=== PATIENT | female | born 1930 | race Caucasian/White ===

== ENCOUNTER 2016-12-24 14:15 | Inpatient (IN) | payer MEDICARE, OTHER, MEDICAID ==
[2016-12-24 14:25] VITALS: BP 119/60
--- NOTE | 2016-12-24 14:40 | ED Physician Chart ---
Chief Complaint/HPI - Patient Information Date Seen:: 12/24/16 Time Seen:: 14:35 Chief Complaint:: agitation History of Present Illness:: pt sent for negrita ortiz for difficult behavior...increased agitation. pt cant give much hx..barely is verbal. yells some but not communicative. she is noted very restless and agitated by staff in ed on arrival Allergies:: Allergies Allergy/AdvReac Type Severity Reaction Status Date / Time peanut Allergy Verified 12/24/16 14:25 diazepam [From Valium] AdvReac Verified 12/24/16 14:25 Vitals:: Vital Signs - 8 hr 12/24/16 12/24/16 14:25 14:26 Temp 98.4 F HR 87 RR 18 BP 119/60 119/60 O2 Sat % 97 Historian:: Patient, Medical Records Review:: Transfer documents Reviewed Review of Systems - Review of Systems General/Constitutional: No fever, No chills, No weight loss, No weakness, No diaphoresis, No edema, No loss of appetite Skin: No skin lesions, No rash, No bruising Head: No headache, No light-headedness Eyes: No loss of vision, No pain, No diplopia ENT: No earache, No nasal drainage, No sore throat, No tinnitus Neck: No neck pain, No swelling, No thyromegaly, No stiffness, No mass noted Cardio Vascular: No chest pain, No palpitations, No PND, No orthopnea, No edema Pulmonary: No SOB, No cough, No sputum, No wheezing GI: No nausea, No vomiting, No diarrhea, No pain, No melena, No hematochezia, No constipation, No hematemesis G/U: No dysuria, No frequency, No hematuria Musculoskeletal: No bone or joint pain, No back pain, No muscle pain Endocrine: No polyuria, No polydipsia Psychiatric: Prior psych history, No depression, No anxiety, No suicidal ideation Hematopoietic: No bruising, No lymphadenopathy Allergic/Immuno: No urticaria, No angioedema Neurological: No syncope, No focal symptoms, No weakness, No paresthesia, No headache, No seizure, No dizziness, Confusion, No vertigo, Other (poor comunication ability) Past Medical History - Past Medical History Past Medical History: HTN, Dyslipidemia, PUD/GERD, Arthritis, Other (insomnea, gi bleed, divertic, osteoporosis, ) Social History: Care Facility Psychiatricy History: Depression, Bipolar Medication: Reviewed Family Medical History - Family Member Nephew History Unknown: Yes Physical Exam - Physical Examination General/Constitutional: Awake, Well-developed, well-nourished, Alert, No distress, Non-toxic appearing Head: Atraumatic Eyes: Lids, conjuctiva normal, PERRL, EOMI Skin: Nl inspection, No rash, No skin lesions, No ecchymosis, Well hydrated, No lymphadenopathy ENMT: External ears, nose nl, Nasal exam nl, Lips, teeth, gums nl Neck: Nontender, Full ROM w/o pain, No JVD, No nuchal rigidity, No bruit, No mass, No stridor Respiratory: Nl effort/Exclusion, Clear to Auscultation, No Wheeze/Rhonchi/Rales Cardio Vascular: RRR, No murmur, gallop, rubs, NL S1 S2 GI: No tenderness/rebounding/guarding, No organomegaly, No hernia, Normal BS's, Nondistended, No mass/bruits, No McBurney tenderness : No CVA tenderness Extremities: No tenderness or effusion, Full ROM, normal strength in all extremities, No edema, Normal digits & nails Neuro/Psych: Alert/oriented, DTR's symmetric, Normal sensory exam, Normal motor strength, Normal gait, No focal deficits Other Neuro/Psych comments:: pt not conversive...though she does yell at times. seh is very restless w whole body choreo-athetoid mvts. Misc: normal gait, Normal back, No paraspinal tenderness Labs/Radiology/EKG Results - Lab Results Results: Laboratory Tests 12/24/16 12/24/16 12/24/16 14:30 14:50 14:50 WBC 6.0 RBC 4.35 Hgb 12.7 Hct 37.1 MCV 85.3 MCH 29.1 MCHC Differential 34.1 RDW 12.9 Plt Count 194 MPV 8.2 Neutrophils % 58.3 Lymphocytes % 31.3 Monocytes % 7.3 Eosinophils % 3.1 Basophils % 0.0 Sodium 139 Potassium 3.6 Chloride 108 H Carbon Dioxide 22.9 Anion Gap 11.7 BUN 16 Creatinine 0.8 Est GFR ( Amer) TNP Est GFR (Non-Af Amer) TNP BUN/Creatinine Ratio 20.0 Glucose 107 H Whole Bld Lactic Acid 1.80 Calcium 9.4 Total Bilirubin 0.4 AST 15 ALT 12 Alkaline Phosphatase 89 Total Protein 7.2 Albumin 4.0 Globulin 3.2 Albumin/Globulin Ratio 1.3 Triglycerides 170 H Cholesterol 165 LDL Cholesterol Direct 79 HDL Cholesterol 64 - EKG Interpretations EKG Time:: 14:40 Rhythm: nsr [place]: 17 Rate: 87 Comments:: normal study x LBBB ED Septic Shock - . Is Septic Shock (SBP<90, OR Lactate>4 mmol\L) present?: No - <6hrs of presentation: Vital Signs: Vital Signs - 8 hr 12/24/16 12/24/16 14:25 14:26 Temp 98.4 F HR 87 RR 18 BP 119/60 119/60 O2 Sat % 97 Reassessment (Disposition) - Reassessment Reassessment Condition:: Improved - Diagnosis Diagnosis:: 1 agitation 2 medically clear for aster-psych admission - Patient Disposition Condition at Disposition:: Improved ED Discharge Plan - Patient Disposition Instructions: Psychosis
[2016-12-24 15:03] LABS: % EOSINOPHILS 3.1 % (0.0-5.0); % LYMPHOCYTES 31.3 % (20.0-50.0); % MONOCYTES 7.3 % (2.0-10.0); % NEUTROPHILS 58.3 % (40.0-80.0); HEMATOCRIT 37.1 % (35.0-45.0); HEMOGLOBIN 12.7 gm/dL (11.7-16.1); MEAN CELL VOLUME 85.3 fl (81-100); MEAN CORPUSCULAR HEMOGLOBIN 29.1 pg (27.0-31.0); MEAN CORPUSCULAR HGB CONC 34.1 pg (28.0-36.0); MEAN PLATELET VOLUME 8.2 fl; NEUTROPHILE ABSOLUTE 3.5 Th/cmm (1.8-8.0); PLATELET COUNT 194 Th/cmm (150-400); RED BLOOD COUNT 4.35 Mil/cmm (3.80-5.20); RED CELL DISTRIBUTION WIDTH 12.9 % (11.5-20.0)
[2016-12-24 15:21] LABS: ALB/GLOB RATIO 1.3 (1.0-1.8); ALKALINE PHOSPHATASE 89 U/L (34-104); ANION GAP 11.7 (7.0-16.0); BILIRUBIN,TOTAL 0.4 mg/dL (0.3-1.0); BUN - UREA NITROGEN 16 mg/dL (7-25); CALCIUM SERUM 9.4 mg/dL (8.6-10.3); CARBON DIOXIDE 22.9 mEq/L (21.0-31.0); CHLORIDE 108 mEq/L (98-107); CHOLESTEROL 165 mg/dL (<200); CREATININE - SERUM 0.8 mg/dL (0.6-1.2); GLUCOSE 107 mg/dL (70-105); POTASSIUM SERUM 3.6 mEq/L (3.5-5.1); SGOT 15 U/L (13-39); SGPT/ALT 12 U/L (7-52); SODIUM SERUM 139 mEq/L (136-145); TRIGLYCERIDES 170 mg/dL (<150)
--- NOTE | 2016-12-24 22:52 | Psychosocial Evaluation ---
IDENTIFYING DATA: The patient is an 86-year-old woman, resident of [facility]. JUSTIFICATION FOR HOSPITALIZATION: The patient is admitted here for acute agitation, screaming, and psychosis. CHIEF COMPLAINT: "I do not know." HISTORY OF PRESENT ILLNESS: This is a first psychiatric hospitalization to [facility] for this patient who is very agitated, screaming and yelling and is not able to provide much of any information. The patient is constantly moving from side to side and has been trying to get out of the bed even without any regard to her safety. The patient has been crying constantly and I am not able to get any information from the patient. Sleep and appetite prior to the hospitalization are reported to be poor. PAST PSYCHIATRIC HISTORY: Details are not known. MEDICAL HISTORY: Physical examination is requested and done by Dr. Lamb. SUBSTANCE ABUSE HISTORY: None. PHYSICAL OR SEXUAL ABUSE HISTORY: None. MEDICATIONS: Prior to the hospitalization are Paxil 30 mg in the morning, the patient is also on oxcarbazepine 300 mg tablet twice daily, the patient also has been getting the Nuedexta 20/10 twice a day and the patient is being treated for hypertension with lisinopril. MENTAL STATUS EXAMINATION: The patient is an 86-year-old woman looking her stated age, superficially cooperative. Eye contact is poor. Mood is noted to be irritable. Affect is constricted. Insight and judgment at this time are noted to be very much impaired. Impulse control is noted to be poor. Coping skills are also noted to be poor. The patient has no insight into her illness. The patient is screaming and yelling and not able to get much of information from the patient. The patient, at this time, is getting very guarded and suspicious and is withdrawing without providing much of information. The patient is noted to be alert and awake, attention span and concentration are noted to be poor, ____ cognitive abilities could not be tested because of the patient's agitated behavior. DIAGNOSTIC IMPRESSION: 1. A. Major depressive disorder, recurrent with anxiety symptoms. B. Rule out psychosis, unspecified. C. Pseudobulbar affect. PLAN: To continue the patient with the Paxil up to 20 mg and use Ativan as p.r.n. and Ambien to help her with the sleep. ESTIMATED LENGTH OF STAY: Three to five days. DISCHARGE CRITERIA: When she no longer a threat to self or others and be able to cope up with the stress. [facility]# [id number]
[2016-12-25] MEDS: Dextromethorphan/Quinidine 20mg/10mg Cap PO SCH ×2 (15:00→21:07)
[2016-12-25] MEDS: Ferrous Sulfate 325 MG TAB PO SCH (15:00)
[2016-12-25 16:07] LABS: HEP B CORE IGM Negative (Negative); HEP C ANTIBODY <0.1 s/co ratio (0.0-0.9)
--- NOTE | 2016-12-25 19:51 | Progress Notes ---
TIME PATIENT SEEN: 10:30 a.m. SUBJECTIVE: Staff was spoken to. The patient is interviewed. Mood is noted to be irritable. Affect is constricted. Insight and judgment at this time are noted to be impaired. Impulse control seems to be poor. Coping skills are also noted to be poor. The patient is still very agitated and could not contained. The patient has been trying to get out of the bed. The patient has no insight into her illness. ASSESSMENT: The patient is still depressed and agitated. PLAN: To continue the patient with the supportive therapy, encourage the patient to verbalize the concerns rather than to act out. [facility]# [id number]
--- NOTE | 2016-12-25 23:36 | Consultation ---
INTERNAL MEDICINE CONSULTATION REFERRING PHYSICIAN: Dr. Cleveland. REASON FOR CONSULT: Management of hypertension, history of low back pain, osteoarthritis. HISTORY OF PRESENT ILLNESS: An 86-year-old lady, resident of [facility] with history of hypertension, chronic anemia, acid reflux disease, osteoporosis, osteoarthritis with DJD, history of T12 compression fracture, hypertension, diverticulosis, bipolar disease, pseudobulbar effect, who was transferred to the ER for [facility] admission given acute agitation with screaming consistent with psychosis. The patient is currently stable, asleep, unable to interview. Therefore, I gathered most of my information from the chart. PAST MEDICAL HISTORY: As noted above. PAST SURGICAL HISTORY: none listed. FAMILY HISTORY: Likely noncontributory. SOCIAL HISTORY: Unknown. She lives at a care facility. ALLERGIES: SHE IS ALLERGIC TO LATEX, PEANUTS, AND DIAZEPAM. OUTPATIENT TRANSFER MEDICATIONS: Vitamin C 500 mg every day, Nuedexta 20/10 q.12h., docusate sodium 100 mg b.i.d., iron sulfate 325 every day, lisinopril 20 every day, milk of magnesia q.12h. p.r.n. for GI upset, melatonin 3 mg at bedtime, Trileptal 300 mg b.i.d. and tramadol 50 mg q.8 p.r.n. for severe pain. REVIEW OF SYSTEMS: Unable to be done at this time. PHYSICAL EXAMINATION: VITAL SIGNS: Temperature 98.9, pulse 82, BP 147/87, respirations 16 to 20, saturating 95% to 98% on room air. GENERAL: She is a well-nourished, mildly obese female, currently asleep, not in acute distress. HEAD AND NECK: Normocephalic, atraumatic. There is no JVD on the neck exam. No LAD. CARDIAC: Regular rate and rhythm without any murmurs. LUNGS: Clear to auscultation bilaterally. ABDOMEN: Soft, supple, nontender, nondistended, normoactive bowel sounds. LOWER EXTREMITIES. There is no edema. NEUROLOGIC: Not able to be tested at this time. LABORATORY DATA: CBC was essentially within normal limits. Chemistry was essentially within normal limits with a glucose of 107. Lactic acid 1.8. TSH within normal limits. DIAGNOSTICS: EKG; normal sinus rhythm at a rate of 87. IMPRESSION: 1. Acute psychosis. 2. History of hypertension. 3. History of anemia. 4. History of acid reflux disease. 5. History of osteoarthritis, degenerative joint disease. 6. History of T12 compression fracture. 7. History of diverticulosis. PLAN: The patient at this time appears to be stable and comfortable. Therefore, I will keep her on the same medications as scheduled. I will add clonidine p.r.n. for SBP greater than 160 and will follow on a daily basis. [facility]# [id number] MILEY
[2016-12-26] MEDS: Ferrous Sulfate 325 MG TAB PO SCH (09:01)
[2016-12-26] MEDS: Dextromethorphan/Quinidine 20mg/10mg Cap PO SCH ×2 (09:03→20:49)
--- NOTE | 2016-12-27 00:29 | Progress Notes ---
TIME PATIENT SEEN: 5:30 p.m. SUBJECTIVE: Staff was spoken to. The patient is interviewed. Mood is noted to be irritable. Affect is constricted. Coping skills are noted to be still poor. Sleep and appetite are also noted to be poor. The patient has difficult time to cope with the stress. No side effects to the medications are noted at this time. The patient has been isolative and withdrawn. The patient ____ start to scream and yell. The patient has been having difficult time to cope with the stress. ASSESSMENT: The patient is still grossly psychotic. The patient is paranoid and depressed. PLAN: To continue the patient with the supportive therapy and follow up. JOB# [id number]
[2016-12-27] MEDS: Dextromethorphan/Quinidine 20mg/10mg Cap PO SCH ×2 (08:16→20:32)
[2016-12-27] MEDS: Ferrous Sulfate 325 MG TAB PO SCH (08:16)
--- NOTE | 2016-12-27 09:30 | Diagnostic Imaging Report ---
Facial bone series 3 views Indication: Trauma Comparison: none Findings: Exam is limited due to positioning. No evidence of a gross displaced fracture. Dental hardware is noted. No air-fluid levels within the visualized paranasal sinuses. No significant focal soft tissue swelling. 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 Impression: Limited exam due to positioning. No evidence of gross displaced fracture. If indicated CT, examination may be obtained for further assessment. Mandibular dental disease is noted with possible erosive changes of the mandible. If indicated, CT exam may be obtained for further assessment. In the setting of trauma, if clinical symptoms persist and there is continued concern for an occult fracture, follow up exams in 5-7 days is suggested.
--- NOTE | 2016-12-27 22:04 | Progress Notes ---
PSYCHIATRIC PROGRESS NOTE TIME PATIENT SEEN: 10:45 a.m. SUBJECTIVE: Staff was spoken to. The patient is interviewed. Mood is noted to be irritable. Affect is constricted. Coping skills are noted to be very poor. Sleep and appetite are also noted to be poor. The patient has been having difficult time to cope with the stress. The patient tends to scream and yell and has no insight into her illness. The patient has been given a dose of medication IM yesterday. ASSESSMENT: The patient is grossly psychotic. PLAN: To continue the patient with the supportive therapy. I encouraged the patient to verbalize the concerns rather than to act out. The patient is going to be closely monitored and the medications are going to be adjusted. [facility]# [id number]
[2016-12-28] MEDS: Ferrous Sulfate 325 MG TAB PO SCH (08:16)
[2016-12-28] MEDS: Dextromethorphan/Quinidine 20mg/10mg Cap PO SCH ×2 (08:16→20:46)
[2016-12-28] MEDS: Magnesium Hydroxide (MOM) 30 mL UDC PO PRN (18:05)
--- NOTE | 2016-12-29 00:12 | Progress Notes ---
PSYCHIATRIC PROGRESS NOTE TIME PATIENT SEEN: 07:45 a.m. SUBJECTIVE: Staff was spoken to. The patient is interviewed. Mood is noted to be irritable. Affect is constricted. Insight and judgment are very much impaired. Impulse control is noted to be poor. Coping skills are noted to be poor. The patient has been having difficult time. The patient has been having sundown ____ the patient has been getting more agitated towards the evening. ASSESSMENT: The patient is still grossly psychotic. PLAN: To continue the patient with supportive therapy and followup. JOB# [id number]
[2016-12-29] MEDS: Dextromethorphan/Quinidine 20mg/10mg Cap PO SCH ×2 (09:43→21:00)
[2016-12-29] MEDS: Ferrous Sulfate 325 MG TAB PO SCH (09:43)
--- NOTE | 2016-12-29 21:40 | Progress Notes ---
PSYCHIATRIC PROGRESS NOTE TIME PATIENT SEEN: 10:00 a.m. SUBJECTIVE: Staff was spoken to. The patient is interviewed. Mood is noted to be irritable. Affect is constricted. The patient has paranoia, but denies any command hallucinations. The patient has been having difficult time mainly towards the end of the day. The patient is decompensating and is having sundowners. ASSESSMENT: The patient is still depressed and paranoid. PLAN: To continue the patient with the supportive therapy. I encouraged the patient to verbalize the concerns rather than to act out. JOB# [id number]
[2016-12-30] MEDS: Dextromethorphan/Quinidine 20mg/10mg Cap PO SCH ×2 (10:43→20:35)
[2016-12-30] MEDS: Ferrous Sulfate 325 MG TAB PO SCH (10:47)
--- NOTE | 2016-12-30 22:27 | Progress Notes ---
PSYCHIATRIC PROGRESS NOTE TIME PATIENT SEEN: 5:15 p.m. SUBJECTIVE: Staff was spoken to. The patient is interviewed. Mood is noted to be dysphoric. Coping skills are noted to be poor. The patient is screaming and yelling. The patient is not making much sense. The patient has to be redirected constantly. No side effects to the medications are noted. The patient has been so far compliant with the medication, and the patient is having problems mainly towards the end of the day where she has been having sundowning syndrome. ASSESSMENT: The patient is still impulsive and psychotic. PLAN: To continue the patient with the supportive therapy. I encouraged the patient to verbalize the concerns rather than to act out. [facility]# [id number]
[2016-12-31] MEDS: Dextromethorphan/Quinidine 20mg/10mg Cap PO SCH ×2 (08:34→20:29)
[2016-12-31] MEDS: Ferrous Sulfate 325 MG TAB PO SCH (08:34)
--- NOTE | 2017-01-01 00:35 | Progress Notes ---
PSYCHIATRIC PROGRESS NOTE TIME PATIENT SEEN: 5:30 p.m. SUBJECTIVE: Staff was spoken to. The patient is interviewed. Mood is noted to be irritable. Affect is constricted. Coping skills are noted to be still poor. Sleep and appetite are also noted be very poor. The patient has been screaming and yelling. The patient has no insight into her illness. The patient has to be given doses of medications, mainly towards the end of the day. The patient is not ready to be discharged in view of her agitated behavior. PLAN: To continue the patient with the current medications and follow up. JOB# [id number]
[2017-01-01] MEDS: Dextromethorphan/Quinidine 20mg/10mg Cap PO SCH ×2 (08:27→21:01)
[2017-01-01] MEDS: Ferrous Sulfate 325 MG TAB PO SCH (08:28)
[2017-01-01] MEDS: Magnesium Hydroxide (MOM) 30 mL UDC PO PRN (18:02)
--- NOTE | 2017-01-02 01:03 | Progress Notes ---
TIME PATIENT SEEN: 11:15 a.m. SUBJECTIVE: Staff was spoken to. The patient is interviewed. Mood is noted to be irritable. Affect is constricted. The patient has been having difficult time to cope with the stress. No side effects to the medications are noted. Coping skills are noted to be still poor. The patient has no insight into her illness. The patient tends to scream and yell and needs to be redirected. So far, no side effects to the medications are noted and the patient is not ready to be discharged to a lower level of care with this kind of behavior. PLAN: To continue the patient with the supportive therapy and follow up. JOB# [id number]
[2017-01-02] MEDS: Ferrous Sulfate 325 MG TAB PO SCH (12:28)
[2017-01-02] MEDS: Dextromethorphan/Quinidine 20mg/10mg Cap PO SCH ×2 (12:28→21:06)
--- NOTE | 2017-01-03 00:26 | Progress Notes ---
TIME PATIENT SEEN: 9:30 a.m. SUBJECTIVE: Staff was spoken to. The patient is interviewed. Mood is noted to be irritable. Affect is constricted. The patient continues to be isolative and withdrawn. Insight and judgment are very much impaired. The patient is screaming and yelling. The patient has pain on a low dose of Paxil and Seroquel and has been able to tolerate the medication. ASSESSMENT: The patient is still psychotic and agitated. PLAN: To continue the patient with the supportive therapy, closely monitor the patient's behavior. JOB# [id number]
[2017-01-03] MEDS: Dextromethorphan/Quinidine 20mg/10mg Cap PO SCH ×2 (10:23→21:25)
[2017-01-03] MEDS: Ferrous Sulfate 325 MG TAB PO SCH (10:23)
--- NOTE | 2017-01-03 18:24 | Progress Notes ---
TIME PATIENT SEEN: 07:30 a.m. SUBJECTIVE: Staff was spoken to. The patient is interviewed. Mood is noted to be irritable. Affect is constricted. The patient is screaming and yelling and the patient could not be redirected. The patient is trying to get out of the bed. Even though the railing is rough, the patient is trying to come up of them. ASSESSMENT: The patient is still paranoid and impulsive. PLAN: To continue the patient with the supportive therapy. I encouraged the patient to verbalize the concerns. The patient is not ready to be discharged to a lower level of care yet. JOB# [id number]
[2017-01-04] MEDS: Dextromethorphan/Quinidine 20mg/10mg Cap PO SCH ×2 (08:43→20:36)
[2017-01-04] MEDS: Ferrous Sulfate 325 MG TAB PO SCH (08:48)
--- NOTE | 2017-01-04 12:36 | Progress Notes ---
PSYCHIATRIC PROGRESS NOTE TIME PATIENT SEEN: 7:30 a.m. SUBJECTIVE: Staff was spoken to. The patient is interviewed. Mood is noted to be less irritable. Affect is constricted. The patient has major problems in the evening. The patient is currently on 25 mg of the Seroquel at bedtime and Paxil 10 mg in the morning and Trileptal 300 mg twice a day. With these medications, the patient has been able to be monitored and no major behavioral problems are noted at this time. Coping skills are noted to be improving. No side effects to the medications are noted. ASSESSMENT: The patient is still impulsive and sundowning. PLAN: To continue the patient with his current medications and followup. [facility]# [id number]
[2017-01-05] MEDS: Dextromethorphan/Quinidine 20mg/10mg Cap PO SCH ×2 (09:05→20:45)
[2017-01-05] MEDS: Ferrous Sulfate 325 MG TAB PO SCH (09:06)
[2017-01-06] MEDS: Ferrous Sulfate 325 MG TAB PO SCH (10:02)
[2017-01-06] MEDS: Dextromethorphan/Quinidine 20mg/10mg Cap PO SCH ×2 (10:02→20:15)
--- NOTE | 2017-01-06 13:12 | Progress Notes ---
PSYCHIATRIC PROGRESS NOTE TIME PATIENT SEEN: 7:30 a.m. SUBJECTIVE: Staff was spoken to. The patient is interviewed. Mood is noted to be anxious. The patient is stating that she wants to go home. She states that she has been in here for too long. Coping skills are noted to be poor still. No side effects to the medications are noted. ASSESSMENT: The patient's screaming and yelling have been coming down. PLAN: To continue the patient with the supportive therapy and encouraged the patient to verbalize the concerns rather than to act out. The patient is currently on Seroquel and is able to tolerate. JOB# [id number]
[2017-01-07] MEDS: Dextromethorphan/Quinidine 20mg/10mg Cap PO SCH (09:48)
[2017-01-07] MEDS: Ferrous Sulfate 325 MG TAB PO SCH (09:48)
--- NOTE | 2017-01-07 18:12 | Discharge Summary ---
IDENTIFYING DATA: The patient is an 86-year-old woman, resident of [facility]. JUSTIFICATION OF HOSPITALIZATION: The patient is admitted here for acute agitation, screaming, and psychosis. CHIEF COMPLAINT: "I don't know." DIAGNOSES AT THE TIME OF THE ADMISSION: AXIS I: a. Major depressive disorder, recurrent, with anxiety symptoms. b. Psychosis, unspecified. c. Pseudobulbar affect. HISTORY OF PRESENT ILLNESS: Please refer to the 12/24/2016 dictation done by me. Physical examination at the time of the admission was done by Dr. Lamb and is noted to be significant for hypertension, acid reflux, osteoporosis, DJD, and T12 compression fracture. HOSPITAL COURSE AND RESPONSE TO TREATMENT: The patient has been observed on the inpatient unit, provided with supportive psychotherapy. The patient's labs have been reviewed by Dr. Lamb. The patient continues to be irritable and angry, and mainly towards the end of the day, the patient starts to scream and yell, and sundowner syndrome has been noted. The patient has been continued on the oxcarbazepine 300 mg twice a day and Paxil 10 mg in the morning, but quetiapine has been added 25 mg at bedtime. The patient has been closely monitored. The patient started to do fairly well and hence the patient was discharged on 01/07/2017. MENTAL STATUS EXAMINATION AT THE TIME OF DISCHARGE: Noted to be stable. The patient is not presenting as a threat to self or others at the time of discharge. DIAGNOSES AT THE TIME OF DISCHARGE: AXIS I: a. Psychotic disorder, unspecified. b. Dementia and behavioral change, secondary trait. AXIS II: None. AXIS III: Hypertension, osteoporosis, history of T12 fracture, and gastroesophageal reflux disease. AFTERCARE PLAN: The patient is [facility] to be followed up on an outpatient basis. PROGNOSIS AT THE TIME OF DISCHARGE: Noted to be fair with the treatment. [facility]# [id number]
== END 2017-01-07 14:15 | DRG 884 ==
LOC: ER 14:15 → GERO 17:15
PROVIDERS: ADMIT Psychiatry & Neurology Psychiatry; ATTEND Psychiatry & Neurology Psychiatry
DX: F03.91 Unspecified dementia, unspecified severity, with behavioral disturbance (principal); F33.2 Major depressive disorder, recurrent severe without psychotic features; D63.8 Anemia in other chronic diseases classified elsewhere; F29 Unspecified psychosis not due to a substance or known physiological condition; F48.2 Pseudobulbar affect; I10 Essential (primary) hypertension; M19.90 Unspecified osteoarthritis, unspecified site; K21.9 Gastro-esophageal reflux disease without esophagitis; M81.0 Age-related osteoporosis without current pathological fracture; Z91.040 Latex allergy status; Z88.8 Allergy status to other drugs, medicaments and biological substances; Z91.010 Allergy to peanuts
CPT/HCPCS: 36415-UA; 70150-TC; 80053-TC; 80061-TC; 80074-90; 83605; 84443-TC; 85025-TC; 86592-TC; 93005; 96374; J2060; Z7610

== ENCOUNTER 2018-05-20 18:22 | Inpatient (IN) | payer MEDICARE, OTHER ==
[2018-05-20] MEDS ORDERED: Haloperidol Lactate 5 mg/mL 1mL Vial ONE (18:51)
[2018-05-20] MEDS ORDERED: Haloperidol Lactate 5 mg/mL 1mL Vial IM PRN (19:04)
--- NOTE | 2018-05-20 19:53 | ED Physician Chart ---
ED Chief Complaint/HPI - Patient Information Date Seen:: 05/20/18 Time Seen:: 19:28 Chief Complaint:: agitation History of Present Illness:: 87 yr old female with hx of bipolar depression anxiety agitation from [facility] pt here very agitated confused hard to understand mummbling Allergies:: Allergies Allergy/AdvReac Type Severity Reaction Status Date / Time latex Allergy Verified 12/24/16 21:11 peanut Allergy Verified 12/24/16 14:25 diazepam [From Valium] AdvReac Verified 12/24/16 14:25 Vitals:: Vital Signs - 8 hr 05/20/18 19:01 HR 96 RR 16 BP 144/61 O2 Sat % 94 ED Review of Systems - Review of Systems General/Constitutional: No fever Skin: No skin lesions Eyes: No loss of vision ENT: No earache Neck: No neck pain Cardio Vascular: No chest pain Pulmonary: No SOB GI: No vomiting G/U: No hematuria Musculoskeletal: No muscle pain Endocrine: No polyuria Psychiatric: Prior psych history, Depression, Anxiety Hematopoietic: No bruising Allergic/Immuno: No urticaria Neurological: No syncope ED Past Medical History - Past Medical History Past Medical History: CAD, Other (gerd uti bipolar depression anxiety psychosis) Family Medical History - Family Member Nephew History Unknown: Yes Ethnicity: Unknown Living Status: Unknown Hx Family Cancer: No Hx Family Coronary Artery Disease: No Hx Family Congestive Heart Failure: No Hx Family Hypertension: No Hx Family Stroke: No Hx Family Diabetes: No Hx Family Seizures: No Hx Family Dementia: No Hx Family AIDS: No Hx Family HIV: No Hx Family COPD: No Hx Family Hepatitis: No Hx Family Psychiatric Problems: No Hx Family Tuberculosis: No ED Physical Exam - Physical Examination General/Constitutional: Well-developed, well-nourished Other Gen/Cons comments:: difficult to understand constantly thrashing moving difficult to manage Head: Atraumatic Eyes: Lids, conjuctiva normal Skin: No rash ENMT: External ears, nose nl Neck: Nontender Respiratory: Nl effort/Exclusion Cardio Vascular: RRR GI: No tenderness/rebounding/guarding : No CVA tenderness Extremities: Full ROM Neuro/Psych: Alert/oriented Misc: No paraspinal tenderness ED Assessment - Assessment General Assessment: agitation bipolar psycjhosis ED Septic Shock - . Is Septic Shock (SBP<90, OR Lactate>4 mmol\L) present?: No - <6hrs of presentation: Vital Signs: Vital Signs - 8 hr 05/20/18 19:01 HR 96 RR 16 BP 144/61 O2 Sat % 94 ED Reassessment (Disposition) - Reassessment Reassessment Condition:: Improved - Diagnosis Diagnosis:: agitation psychosis - Patient Disposition Discharge/Transfer:: Acute Care w/in this hosp Condition at Disposition:: Stable
[2018-05-20 19:59] LABS: % BASOPHILS 1.1 % (0.0-2.0); % EOSINOPHILS 1.9 % (0.0-5.0); % LYMPHOCYTES 21.5 % (20.0-50.0); % MONOCYTES 8.4 % (2.0-10.0); % NEUTROPHILS 67.1 % (40.0-80.0); BASOPHILE ABSOLUTE 0.1 Th/cumm (0-0.2); EOSINOPHILE ABSOLUTE 0.2 Th/cmm (0.1-0.4); HEMOGLOBIN 12.5 gm/dL (12-16); LYMPHOCYTE ABSOLUTE 1.8 Th/cmm (1.5-3.0); MEAN CORPUSCULAR HEMOGLOBIN 29.3 pg (27.0-31.0); MEAN CORPUSCULAR HGB CONC 33.7 pg (28.0-36.0); MEAN PLATELET VOLUME 7.6 fl; MONOCYTE ABSOLUTE 0.7 Th/cmm (0.3-1.0); NEUTROPHILE ABSOLUTE 5.4 Th/cmm (1.8-8.0); PLATELET COUNT 247 Th/cmm (150-400); RED BLOOD COUNT 4.26 Mil/cmm (3.80-5.20); RED CELL DISTRIBUTION WIDTH 12.9 % (11.5-20.0); WHITE BLOOD COUNT 8.2 Th/cmm (4.8-10.8)
[2018-05-20 20:11] LABS: ALB/GLOB RATIO 1.3 (1.0-1.8); ALBUMIN 4.3 gm/dL (3.7-5.3); ALKALINE PHOSPHATASE 100 U/L (34-104); ANION GAP 13.5 (7.0-16.0); BILIRUBIN,TOTAL 0.3 mg/dL (0.3-1.0); BUN - UREA NITROGEN 29 mg/dL (7-25); CALCIUM SERUM 9.5 mg/dL (8.6-10.3); CARBON DIOXIDE 21.7 mEq/L (21.0-31.0); CHLORIDE 105 mEq/L (98-107); CREATININE - SERUM 0.9 mg/dL (0.6-1.2); GLUCOSE 110 mg/dL (70-105); POTASSIUM SERUM 4.2 mEq/L (3.5-5.1); SGOT 17 U/L (13-39); SGPT/ALT 17 U/L (7-52); SODIUM SERUM 136 mEq/L (136-145); TOTAL PROTEIN,SERUM 7.5 gm/dL (6.0-8.3)
[2018-05-20] MEDS ORDERED: Haloperidol Lactate 5 mg/mL 1mL Vial IM ONE (21:00)
[2018-05-20] MEDS ORDERED: Magnesium Hydroxide (MOM) 30 mL UDC PO PRN (23:27)
[2018-05-20] MEDS ORDERED: Maalox 30 mL Cup PO PRN (23:27)
[2018-05-20 23:36] VITALS: BP 130/82
[2018-05-21] MEDS: Multivitamin Tab PO SCH (08:19)
--- NOTE | 2018-05-21 08:32 | Diagnostic Imaging Report ---
CHEST X-RAY: AP view INDICATION: pain COMPARISON: None FINDINGS: There is elevation of the right hemidiaphragm. Accentuation of the interstitial lung markings are noted. No focal consolidation or effusions. Cardiomegaly is noted. Degenerative changes of the spine and shoulders are IMPRESSION: Accentuation of the interstitial lung markings. Note, interstitial infiltrates of the perihilar regions cannot be excluded. Clinical correlation and short-term follow-up including AP and lateral views of the chest may be obtained when clinically feasible. Cardiomegaly and atherosclerotic vascular disease.
[2018-05-21] MEDS ORDERED: Magnesium Hydroxide (MOM) 30 mL UDC PO PRN (12:45)
--- NOTE | 2018-05-21 14:15 | Psychiatric Evaluation ---
DATE OF SERVICE: 05/20/2018 IDENTIFYING DATA: The patient is an 87-year-old woman, resident of [facility]. JUSTIFICATION OF HOSPITALIZATION: The patient is admitted for screaming and yelling and psychosis. CHIEF COMPLAINT: "I need to go home." HISTORY OF PRESENT ILLNESS: This is the second psychiatric hospitalization for this patient who was hospitalized in 2017 under my care. The patient is reported to have been getting easily agitated towards the end of the day and has been screaming and yelling. Sleep and appetite prior to the hospitalization are reported to be poor. The patient is not able to contract for safety and hence the patient has been brought over here for stabilization. PAST PSYCHIATRIC HISTORY: Please refer to the above. MEDICAL HISTORY: Requested to be done by Dr. Lamb. SUBSTANCE ABUSE HISTORY: None. MENTAL STATUS EXAMINATION: The patient is an 87-year-old, looking her stated age, superficially cooperative. The patient is getting easily agitated during the interview. The patient is insisting that she needs to go home. The patient has short-term as well as long-term memory deficits and the patient is not able to contract for safety. Attention span and concentration are also noted to be very poor. The patient is getting easily frustrated. The patient is alert and awake, but she has no clue that she is in the hospital. The patient in view of her agitation has been given a dose of the haloperidol yesterday in the Emergency Room. The patient at this time is not able to provide much of information and hence I am going to be starting the patient with a low dose of the Seroquel at night time and for psychosis, the patient is going to be closely monitored and is going to be followed up with the supportive therapy. DIAGNOSES AT THE TIME OF ADMISSION: AXIS I: 1A. Psychotic disorder, not otherwise specified. 1B. Dementia and behavioral change, secondary to dementia. JOB# [id number]
[2018-05-21] MEDS: Dextromethorphan/Quinidine 20mg/10mg Cap PO SCH (21:39)
--- NOTE | 2018-05-22 01:46 | Consultation ---
DATE OF CONSULTATION: INTERNAL MEDICINE CONSULT REFERRING PHYSICIAN: Dr. Cleveland. REASON FOR CONSULT: Medical management. HISTORY OF PRESENT ILLNESS: This is an 87-year-old lady with history of essential hypertension, bipolar disorder, pseudobulbar affect, anxiety/depression, previous history of diverticulosis and UTIs, who was transferred from [facility] due to increased agitation and aggressive behavior. The patient is currently residing at [facility] and is in the lunch area on a [facility] chair given her agitation. She is agitated and is not able to provide any significant history at this time, although she does not appear to be in any distress. PAST MEDICAL HISTORY: As noted above. GERD and osteoporosis. PAST SURGICAL HISTORY: Unknown. FAMILY HISTORY: Likely noncontributory to this admission. SOCIAL HISTORY: Unknown. She resides at a [facility]. ALLERGIES: ALLERGIC TO PEANUTS, LATEX, AND DIAZEPAM. OUTPATIENT MEDICATIONS: Vitamin C 500 mg q. day, clonidine 0.1 q. 6 hours p.r.n. for SBP greater than 160, Nuedexta 1 cap q. 12 hours, Colace 100 mg b.i.d., iron sulfate 325 mg q. day, lisinopril 20 mg q. day, lorazepam 0.5 mg q. 6 p.r.n. for anxiety, milk of magnesia q. 12 hours p.r.n., Trileptal 300 mg b.i.d., Paxil 10 mg daily, Seroquel 25 mg at bedtime, tramadol 50 mg q. 8 hours p.r.n. for pain. REVIEW OF SYSTEMS: Not able to be done given patient's condition, but per medical records, there is no report of fever, chills, or weight loss. There is no report of chest pain, palpitations, shortness of breath or any UTI symptomatology. PHYSICAL EXAMINATION: VITAL SIGNS: Temperature 98.3, afebrile, pulse 76, respirations 18, BP 130/82, satting 96% on room air. GENERAL: She is a well-developed, obese female who appears to be anxious, but is not in acute distress. HEAD AND NECK: Normocephalic, atraumatic. Her pupils are reactive to light and her extraocular movements are intact. NECK: There is no JVD or LAD, nontender. CARDIAC: Regular rate and rhythm with distant sounds. S1, S2 are present. LUNGS: Diminished at the bases, but she has a poor inspiratory effort, no audible rhonchi, wheezing or crackles. ABDOMEN: Soft, supple, nontender, nondistended, normoactive bowel sounds. EXTREMITIES: Lower extremity, there is trace edema. NEUROLOGIC: Difficult to assess given patient's condition as she is uncooperative. LABORATORY DATA: CBC was essentially within normal limits. BUN 29, otherwise Chem-7 was within normal limits. Glucose 110. LFTs were within normal limits. DIAGNOSTICS: Chest x-ray shows interstitial lung markings, cardiomegaly and atherosclerotic vascular disease. ASSESSMENT: 1. Acute psych decompensation. 2. History of pseudobulbar affect. 3. History of anxiety and depression. 4. History of bipolar disorder. 5. Essential hypertension. 6. Previous history of diverticulosis. 7. History of acid reflux disease. 8. History of osteoporosis. 9. Cardiomegaly/arteriovascular disease. PLAN: The patient will remain on her current medications including lisinopril 20 mg b.i.d. and I will also add clonidine p.r.n. for SBP greater than 160. Other meds will also remain in place. JOB# [id number] MILEY
[2018-05-22] MEDS: Dextromethorphan/Quinidine 20mg/10mg Cap PO SCH ×2 (08:36→21:23)
[2018-05-22] MEDS: Ferrous Sulfate 325 MG TAB PO SCH (08:37)
[2018-05-22] MEDS: Multivitamin Tab PO SCH (08:38)
--- NOTE | 2018-05-22 20:20 | Consultation ---
DATE OF CONSULTATION: 05/22/2018 REFERRING PHYSICIAN: Dr. Ange Cleveland M.D. TYPE OF CONSULTATION: Psychology. HISTORY OF PRESENT ILLNESS: The patient is an 87-year-old female. The patient is a resident of [facility]. The patient is known to this leader writer from that facility as well as from previous hospitalizations. The following is by record review and by patient self report. The patient is being admitted due to screaming and yelling episodes as well as increased psychotic symptoms and poor behavioral redirectability. The staff at the patient's facility reported to this leader writer that the patient had been getting easily agitated towards the end of the day with possible owning. The patient's screaming and yelling episodes had returned and has increased over the past couple of weeks. It was recommended the patient be admitted here for stabilization. The patient is not able to verbally contract for safety at the time of the clinical interview. The patient is quite confused as well as irritable and easily agitated. The patient did not answer questions about suicidal ideation, plan, or intention, or hopelessness and helplessness. PAST MEDICAL HISTORY: Please see history and physical by Dr. Lamb. PAST PSYCHIATRIC HISTORY: The patient has a long history of a psychotic disorder as well as dementia with behavioral disturbance. The patient is under the care of both Psychiatry and Psychology at her custodial facility. The patient has multiple previous psychiatric hospitalizations. The patient is known to this leader writer from her custodial facility. SUBSTANCE ABUSE HISTORY: None. PSYCHOSOCIAL HISTORY: The patient is a resident of [facility]. The patient does have one family member that is part of her support system. The patient did not answer questions about occupational or educational history or anglican affiliation. The patient did not answer questions about history of physical or sexual abuse. The patient did not answer questions about current legal problems. The patient is demanding to be discharged. MENTAL STATUS EXAMINATION: The patient appears to be her stated age. The patient's attitude is uncooperative. Speech is loud with intermittent yelling and screaming episodes. Eye contact is poor. Mood is irritable. Affect is constricted. The patient's behavior is easily agitated during the clinical interview. The patient is demanding to go home. The patient did not answer questions about suicidal ideation, plan, or intention. She did not answer questions about auditory or visual hallucinations. Concentration is poor. Impulse control is inadequate. Sensorium is alert and oriented to self and place only. The patient did not participate in the memory assessment. The patient did not participate in the interpretation of proverbs. Insight is impaired. Judgment is impaired. DIAGNOSTIC IMPRESSION: AXIS I: 1. History of psychotic disorder, not otherwise specified. 2. History of dementia with behavioral disturbance. AXIS II: Deferred. AXIS III: Per Dr. Lamb. TREATMENT PLAN: The patient has been seen by Dr. Cleveland for psychiatric evaluation and for the management of the patient's psychotropic medications. We will provide supportive psychotherapy to include limit setting and de-escalation. We will provide motivational enhancement for the patient to become compliant and stay compliant with all aspects of her care and treatment plan. We will provide stress management to increase the patient's frustration tolerance. We will provide and encourage the patient to demonstrate the ability for emotional and self-regulation. We will provide reality orientation, differentiation, and integration. We will continue with supportive therapy to include coping strategies for all issues related to her placement. Thank you Dr. Cleveland for this consult and the opportunity to participate in this patient's care. JOB# [id number] MILEY
--- NOTE | 2018-05-23 01:27 | Progress Notes ---
DATE: 05/22/2018 SUBJECTIVE: Staff was spoken to. The patient is interviewed. Mood is noted to be irritable. Affect is constricted. Insight and judgment at this time are noted to be still impaired. Impulse control is poor. The patient is reluctant to comply with the medication. Continues to be paranoid and agitated and needs to be redirected. The patient has poor short-term as well as long-term memory deficits. ASSESSMENT: The patient is still agitated. PLAN: To continue the patient with the supportive therapy and followup. JOB# [id number]
[2018-05-23] MEDS: Ferrous Sulfate 325 MG TAB PO SCH (09:07)
[2018-05-23] MEDS: Dextromethorphan/Quinidine 20mg/10mg Cap PO SCH ×2 (09:07→21:42)
[2018-05-23] MEDS: Multivitamin Tab PO SCH (09:08)
--- NOTE | 2018-05-23 13:01 | Progress Notes ---
DATE: 05/23/2018 PSYCHIATRIC PROGRESS NOTE SUBJECTIVE: Staff was spoken to. The patient is interviewed. Mood is noted to be irritable. Affect is constricted. Coping skills at this time are noted to be poor. Sleep and appetite are also noted to be poor. The patient has been having difficult time to cope with the stress. The patient is currently on 12.5 mg of the Seroquel and has been able to tolerate the medications. No side effects to medications are noted. ASSESSMENT: The patient is still impulsive. PLAN: To continue the patient with the current medications. I encouraged the patient to verbalize the concerns rather than to act out. JOB# [id number]
[2018-05-24] MEDS: Multivitamin Tab PO SCH (09:24)
[2018-05-24] MEDS: Dextromethorphan/Quinidine 20mg/10mg Cap PO SCH ×2 (09:25→20:18)
[2018-05-24] MEDS: Ferrous Sulfate 325 MG TAB PO SCH (09:25)
--- NOTE | 2018-05-24 17:02 | Progress Notes ---
DATE: 05/24/2018 SUBJECTIVE: Staff was spoken to. The patient is interviewed. Mood is noted to be irritable. Affect is constricted. The patient's coping skills are noted to be poor. Insight and judgment also noted to be very much impaired. The patient has paranoia and the patient has been having most of the time. The owning maybe towards the end of the day. The patient's coping skills at this time are noted to be poor. No side effects to the medications are noted. ASSESSMENT: The patient is still demented and paranoid. PLAN: To continue the patient with the supportive therapy and followup. JOB# [id number]
[2018-05-25] MEDS: Ferrous Sulfate 325 MG TAB PO SCH (09:10)
[2018-05-25] MEDS: Multivitamin Tab PO SCH (09:10)
[2018-05-25] MEDS: Dextromethorphan/Quinidine 20mg/10mg Cap PO SCH ×2 (09:10→20:21)
--- NOTE | 2018-05-25 18:15 | Progress Notes ---
DATE: 05/25/2018 SUBJECTIVE: Staff was spoken to. The patient is interviewed. Mood is noted to be irritable. Affected is constricted. The patient's coping skills are noted to be poor. The patient is isolative and withdrawn. The patient is very confused this morning and no agitated behavior is reported. The patient is currently on 12.5 mg of the Seroquel. I am planning to continue the patient with the same and follow the patient with the supportive therapy. JOB# [id number]
[2018-05-26] MEDS: Dextromethorphan/Quinidine 20mg/10mg Cap PO SCH ×2 (10:00→21:20)
[2018-05-26] MEDS: Multivitamin Tab PO SCH (10:00)
[2018-05-26] MEDS: Ferrous Sulfate 325 MG TAB PO SCH (10:00)
--- NOTE | 2018-05-27 00:21 | Progress Notes ---
DATE: 05/26/2018 PSYCHIATRIC PROGRESS NOTE PROGRESS ON THE UNIT: Staff was spoken to. The patient is interviewed. Mood is noted to be irritable. Affect is constricted. Coping skills are noted to be extremely poor. Sleep and appetite are also noted to be poor. The patient has been having difficult time to cope with the stress. No side effects of medications are noted. ASSESSMENT: The patient is still psychotic and demented. PLAN: To continue the patient with supportive therapy and followup. JOB# [id number]
[2018-05-27] MEDS: Multivitamin Tab PO SCH (09:02)
[2018-05-27] MEDS: Dextromethorphan/Quinidine 20mg/10mg Cap PO SCH ×2 (09:02→21:43)
[2018-05-27] MEDS: Ferrous Sulfate 325 MG TAB PO SCH (09:05)
--- NOTE | 2018-05-27 16:33 | Progress Notes ---
DATE: 05/27/2018 SUBJECTIVE: Staff was spoken to. The patient is interviewed. Mood is noted to be less irritable. The patient is not able to articulate much because of problems with articulation. Coping skills at this time are noted to be poor. No side effects to the medications are noted. The patient has been closely monitored at this time and the patient is on low-dose of the Seroquel that is being given at 25 mg and the patient has been able to tolerate. No major behavioral problems are noted at this time. ASSESSMENT: The patient is still confused. PLAN: To continue the patient with the supportive therapy, encouraged the patient to verbalize the concerns rather than to act out. Please note that when the patient is not getting her ____ she has been getting easily irritable and stats to scream. JOB# [id number]
[2018-05-28] MEDS: Dextromethorphan/Quinidine 20mg/10mg Cap PO SCH ×2 (08:52→21:00)
[2018-05-28] MEDS: Ferrous Sulfate 325 MG TAB PO SCH (08:52)
[2018-05-28] MEDS: Multivitamin Tab PO SCH (08:52)
--- NOTE | 2018-05-29 05:21 | Progress Notes ---
DATE: 05/28/2018 SUBJECTIVE: Staff was spoken to. The patient is interviewed. Mood is noted to be irritable. Affect is constricted. Coping skills are noted to be poor. Insight and judgment are also noted to be poor. The patient has been having difficult time to cope with the stress. The patient is not able to verbalize the concerns. ASSESSMENT: The patient is still demented and paranoid. PLAN: To continue the patient with the supportive therapy and followup. [facility]# [id number]
[2018-05-29] MEDS: Dextromethorphan/Quinidine 20mg/10mg Cap PO SCH ×2 (09:54→21:12)
[2018-05-29] MEDS: Ferrous Sulfate 325 MG TAB PO SCH (09:55)
[2018-05-29] MEDS: Multivitamin Tab PO SCH (09:55)
--- NOTE | 2018-05-29 16:32 | Progress Notes ---
DATE: 05/29/2018 SUBJECTIVE: Staff was spoken to. The patient is interviewed. Mood is noted to be irritable. Affect is constricted. Coping skills are noted to be poor. Insight and judgment are also noted to be limited. The patient has been having difficult time to cope with the stress. The patient has been having difficult time with the structure of the unit. The patient is confused at this time and is getting easily agitated and the patient has both short-term as well as long-term memory deficits. The patient is currently on Seroquel. She is getting at 25 mg at bedtime and has been able to tolerate. No side effects to the medications are noted. ASSESSMENT: The patient is still psychotic and impulsive. PLAN: To continue the patient with the supportive therapy and followup. JOB# [id number]
[2018-05-30] MEDS: Dextromethorphan/Quinidine 20mg/10mg Cap PO SCH ×2 (08:55→21:03)
[2018-05-30] MEDS: Ferrous Sulfate 325 MG TAB PO SCH (08:55)
[2018-05-30] MEDS: Multivitamin Tab PO SCH (08:58)
--- NOTE | 2018-05-30 17:58 | Progress Notes ---
DATE: 05/30/2018 SUBJECTIVE: Staff was spoken to. The patient is interviewed. Mood is noted to be irritable. Affect is constricted. The patient is isolative and withdrawn. The patient is reluctant to participate in any of the groups. No side effects to the medications are noted. ASSESSMENT: The patient is still confused and demented. PLAN: To continue the patient with the supportive therapy, encouraged the patient to verbalize the concerns rather than to act out. JOB# [id number]
[2018-05-31] MEDS: Dextromethorphan/Quinidine 20mg/10mg Cap PO SCH ×2 (08:55→20:30)
[2018-05-31] MEDS: Ferrous Sulfate 325 MG TAB PO SCH (08:55)
[2018-05-31] MEDS: Multivitamin Tab PO SCH (08:58)
--- NOTE | 2018-06-01 02:14 | Progress Notes ---
DATE: 05/31/2018 PSYCHIATRIC PROGRESS NOTE SUBJECTIVE: Staff was spoken to. The patient is interviewed. Mood is noted to be anxious. The patient has been developing a rash around the diaper area. No major behavioral problems are noted today. The patient is not presenting with any screaming and yelling, but the patient is noted to be a little bit too groggy today. ASSESSMENT AND PLAN: No side effects to the medications are noted and hence, I have decided to hold the Seroquel for tonight and follow the patient up with supportive therapy. I encouraged the patient to verbalize the concerns rather than to act out. The patient is going to be closely monitored for any aggressive behavior. JOB# [id number]
[2018-06-01] MEDS: Dextromethorphan/Quinidine 20mg/10mg Cap PO SCH (08:57)
[2018-06-01] MEDS: Ferrous Sulfate 325 MG TAB PO SCH (08:57)
[2018-06-01] MEDS: Multivitamin Tab PO SCH (08:58)
[2018-06-01 10:37] LABS: CHOLESTEROL 174 mg/dL (<200); HDL -HIGH DENSITY LIPOPROTEIN 45 mg/dL (23-92); TRIGLYCERIDES 162 mg/dL (<150)
--- NOTE | 2018-06-01 12:59 | Discharge Summary ---
DATE OF DISCHARGE: 06/01/2018 IDENTIFYING DATA: The patient is an 87-year-old woman, resident of a [facility] facility. JUSTIFICATION OF HOSPITALIZATION: The patient is admitted for screaming, yelling, and psychotic behavior symptoms. CHIEF COMPLAINT: "I need to go home." DIAGNOSES AT THE TIME OF ADMISSION: AXIS I: A. Psychotic disorder, not otherwise specified. B. Dementia and behavioral changes. AXIS II: None. AXIS III: As per Dr. Lamb. HOSPITAL COURSE AND RESPONSE TO TREATMENT: The patient has been observed on the inpatient unit, provided with supportive psychotherapy. The patient's BUN is noted to be slightly high as 29, glucose noted to be 110 and the patient has been closely monitored and encouraged to participate in the groups and verbalize the concerns. The patient has been started with low dose of the Seroquel, which was gradually increased to 25 mg and the patient's aggressive behavior came under control and no major behavioral problems are noted and the patient was discharged on 06/01/2018 with a recommendation that she is going to be seeking treatment on an outpatient basis. MENTAL STATUS EXAMINATION: At the time of the discharge, the patient noted to be anxious. Affect is appropriate. Insight and judgment at this time are noted to be improving. Impulse control seems to be fair. No side effects to the medications are noted. The patient has been able to verbalize the concerns. In view of the sugar being high, I have decided to order the lipid panel prior to the patient being discharged. DIAGNOSES AT THE TIME OF DISCHARGE: AXIS I: A. Psychotic disorder, not otherwise specified. B. Dementia and behavioral change secondary to age. AXIS II: None. AXIS III: As per Dr. Lamb. AFTERCARE PLAN: The patient is discharged to the [facility] facility for further followup and the patient is going to be followed up on an outpatient basis for her essential hypertension, GERD, and osteoporosis, on an outpatient basis. PROGNOSIS: At the time of discharge noted to be fair with the treatment. JOB# [id number]
== END 2018-06-01 15:30 | DRG 885 ==
LOC: ER 18:22 → GERO2 20:35 → GERO 05-21 09:52
PROVIDERS: ADMIT Psychiatry & Neurology Psychiatry; ATTEND Psychiatry & Neurology Psychiatry
DX: F23 Brief psychotic disorder (principal); F03.91 Unspecified dementia, unspecified severity, with behavioral disturbance; F48.2 Pseudobulbar affect; M81.0 Age-related osteoporosis without current pathological fracture; K21.9 Gastro-esophageal reflux disease without esophagitis; I25.10 Atherosclerotic heart disease of native coronary artery without angina pectoris; I11.9 Hypertensive heart disease without heart failure; F41.9 Anxiety disorder, unspecified; R21 Rash and other nonspecific skin eruption; Z88.8 Allergy status to other drugs, medicaments and biological substances; Z91.040 Latex allergy status; Z91.010 Allergy to peanuts
CPT/HCPCS: 36415-UA; 71045-TC; 80053-TC; 80061-TC; 82948-90; 85025-TC; 93005; J1200; J1630; J2060; Z7610